=== PATIENT | male | born 1975 | race Caucasian/White ===

== ENCOUNTER 2016-12-06 10:35 | Emergency (ER) | payer OTHER ==
[2016-12-06 11:28] LABS: Basophils % (Auto) 0.7 % (0.0-1.8); Eosinophils % (Auto) 0.9 % (0.0-4.3); Hematocrit 45.5 % (35.5-45.6); Hemoglobin 15.6 gm/dl (11.8-15.2); Mean Corpuscular HGB Conc 34 % (32-34); Mean Corpuscular Hemoglobin 32 pg (28-32); Mean Corpuscular Volume 94 fl (84-94); Platelet Count 202 K/mm3 (140-440); Red Blood Count 4.84 M/mm3 (3.65-5.03); Red Cell Distribution Width 14.5 % (13.2-15.2); White Blood Count 8.7 K/mm3 (4.5-11.0)
[2016-12-06 11:35] LABS: Alanine Aminotransferase 7 units/L (7-56); Albumin 3.8 g/dL (3.9-5); Albumin/Globulin Ratio 0.9 %; Alkaline Phosphatase 47 units/L (35-129); Anion Gap 15 mmol/L; Blood Urea Nitrogen 7 mg/dL (9-20); Calcium 8.6 mg/dL (8.4-10.2); Carbon Dioxide 30 mmol/L (22-30); Glucose 95 mg/dL (75-100); Lipase 13 units/L (13-60); Sodium 138 mmol/L (137-145); Total Protein 8.2 g/dL (6.3-8.2)
[2016-12-06 11:39] LABS: Potassium 2.7 mmol/L (3.6-5.0)
[2016-12-06 11:55] LABS: Bacteria,Urine 1+ /HPF (Negative); Bilirubin,Urine NEG (Negative); Blood,Urine NEG (Negative); Ketones,Urine TR mg/dL (Negative); Leukocyte Esterase,Urine NEG (Negative); Mucus,Urine FEW /HPF; Nitrite,Urine NEG (Negative); Urobilinogen,Urine < 2.0 mg/dL (<2.0)
[2016-12-06] MEDS ORDERED: K-DUR PO ONE (12:39)
[2016-12-06] MEDS ORDERED: TORADOL IV ONE (12:47)
--- NOTE | 2016-12-06 12:54 | Emergency Department Report ---
HPI - General Chief Complaint: Abdominal Pain Time Seen by Provider: 12/06/16 12:38 - HPI HPI: Room 3 The patient is a 41-year-old male presenting with a chief complaint of abdominal pain and pleurisy. Patient states symptoms began 2 days ago with right lower quadrant abdominal pain rated into his right flank and right upper back. Patient states the pain has been intermittent. Patient doesn't pleurisy but denies any recent flights or long car trips. Patient admits to occasional cough and shortness of breath for past 2 days. Patient denies dysuria or hematuria. The patient currently gives his pain a score of 8/10 Location: [see above] Duration: 2 days Quality: Sharp Severity: 8/10 Modifying factors: [see above] Context: [see above] Mode of transportation: The patient drove himself to the ED and there are no visitors present ED Past Medical Hx - Past Medical History Hx HIV: Yes (CD4 count unknown. No therapy times one month) - Surgical History Past Surgical History?: No - Family History Family history: no significant - Social History Smoking Status: Current Every Day Smoker (1/3 pack per day) Substance Use Type: None (denies illicit drug use), Alcohol (occasional) ED Review of Systems ROS: Stated complaint: CHEST PAIN Other details as noted in HPI Comment: All other systems reviewed and negative Constitutional: denies: chills, fever Eyes: denies: eye pain, eye discharge, vision change ENT: denies: ear pain, throat pain Respiratory: cough, shortness of breath, other (pleurisy) Cardiovascular: denies: chest pain, palpitations Endocrine: no symptoms reported Gastrointestinal: denies: abdominal pain, nausea, diarrhea Genitourinary: denies: urgency, dysuria Musculoskeletal: back pain Skin: denies: rash, lesions Neurological: denies: headache, weakness, paresthesias Psychiatric: denies: anxiety, depression Hematological/Lymphatic: denies: easy bleeding, easy bruising Physical Exam - Physical Exam Vital Signs: Vital Signs 12/06/16 10:47 Temperature 98.4 F Pulse Rate 75 Respiratory 18 Rate Blood Pressure 109/77 O2 Sat by Pulse 100 Oximetry Physical Exam: GENERAL: The patient is well-developed well-nourished male lying on stretcher not appearing to be in acute distress. [] HEENT: Normocephalic. Atraumatic. Extraocular motions are intact. Patient has moist mucous membranes. NECK: Supple. Trachea midline CHEST/LUNGS: Clear to auscultation. There is no respiratory distress noted. HEART/CARDIOVASCULAR: Regular. There is no tachycardia. There is no gallop rub or murmur. ABDOMEN: Abdomen is soft, nontender. Patient has normal bowel sounds. There is no abdominal distention. SKIN: There is no rash. There is no edema. There is no diaphoresis. NEURO: The patient is awake, alert, and oriented. The patient is cooperative. The patient has normal speech MUSCULOSKELETAL: There is no CVA tenderness. There is no evidence of acute injury. ED Course Vital Signs 12/06/16 10:47 Temperature 98.4 F Pulse Rate 75 Respiratory 18 Rate Blood Pressure 109/77 O2 Sat by Pulse 100 Oximetry ED Medical Decision Making - Lab Data Result diagrams: 12/06/16 10:56 12/06/16 10:56 Laboratory Tests 12/06/16 12/06/16 12/06/16 10:56 10:56 10:56 WBC 8.7 RBC 4.84 Hgb 15.6 H Hct 45.5 MCV 94 MCH 32 MCHC 34 RDW 14.5 Plt Count 202 Lymph % (Auto) 13.0 L [place] % (Auto) 10.7 H Eos % (Auto) 0.9 Baso % (Auto) 0.7 Lymph # 1.1 L [place] # 0.9 H Eos # 0.1 Baso # 0.1 Seg Neutrophils % 74.7 H Seg Neutrophils # 6.5 Sodium 138 Potassium 2.7 L* Chloride 96.0 L Carbon Dioxide 30 Anion Gap 15 BUN 7 L Creatinine 1.0 Estimated GFR > 60 BUN/Creatinine Ratio 7.00 Glucose 95 Calcium 8.6 Magnesium 1.90 Total Bilirubin 0.70 AST 14 ALT 7 Alkaline Phosphatase 47 Total Protein 8.2 Albumin 3.8 L Albumin/Globulin Ratio 0.9 Lipase 13 Urine Color Urine Turbidity Urine pH Ur Specific [place] Urine Protein Urine Glucose (UA) Urine Ketones Urine Blood Urine Nitrite Urine Bilirubin Urine Urobilinogen Ur Leukocyte Esterase Urine WBC (Auto) Urine RBC (Auto) Urine Bacteria (Auto) Urine Mucus 12/06/16 11:26 WBC RBC Hgb Hct MCV MCH MCHC RDW Plt Count Lymph % (Auto) [place] % (Auto) Eos % (Auto) Baso % (Auto) Lymph # [place] # Eos # Baso # Seg Neutrophils % Seg Neutrophils # Sodium Potassium Chloride Carbon Dioxide Anion Gap BUN Creatinine Estimated GFR BUN/Creatinine Ratio Glucose Calcium Magnesium Total Bilirubin AST ALT Alkaline Phosphatase Total Protein Albumin Albumin/Globulin Ratio Lipase Urine Color Yellow Urine Turbidity Clear Urine pH 5.0 Ur Specific [place] 1.017 Urine Protein 30 mg/dl Urine Glucose (UA) Neg Urine Ketones Tr Urine Blood Neg Urine Nitrite Neg Urine Bilirubin Neg Urine Urobilinogen < 2.0 Ur Leukocyte Esterase Neg Urine WBC (Auto) 7.0 H Urine RBC (Auto) 2.0 Urine Bacteria (Auto) 1+ Urine Mucus Few - Radiology Data Radiology results: report reviewed (CT chest), image reviewed (CT abdomen and pelvis, CT chest) CT chest (discussed with radiologist)-bilateral PEs - Differential Diagnosis pneumonia, pneumothorax, PE Critical care attestation.: If time is entered above; I have spent that time in minutes in the direct care of this critically ill patient, excluding procedure time. ED Disposition Clinical Impression: Hypokalemia, Bilateral pulmonary embolism Disposition: OP ADMIT IP TO THIS HOSP Is pt being admited?: Yes Does the pt Need Aspirin: Yes Condition: Fair Referrals: PRIMARY CARE, [Primary Care Provider] - 3-5 Days Time of Disposition: 15:23 (hospitalist notified)
[2016-12-06] MEDS ORDERED: NACL ONE (13:56)
--- NOTE | 2016-12-06 15:16 | Cat Scan Report ---
FINAL REPORT PROCEDURE: CT ABDOMEN PELVIS W CON TECHNIQUE: Computerized axial tomography of the abdomen and pelvis was performed after the IV injection of iodinated nonionic contrast. HISTORY: right flank pain COMPARISON: No prior studies are available for comparison. FINDINGS: Ground-glass and alveolar opacity is seen at the right lung base. Please see further evaluation on CTA chest report to follow this exam. No splenic abnormality is seen. 4 millimeter cyst is seen in the right hepatic lobe. Gallbladder and pancreas appear normal. The adrenal glands and abdominal aorta are normal in size. No renal abnormalities are seen. Normal appendix is seen. Bladder appears normal. Trace free pelvic fluid is seen. Moderate right-sided constipation is seen. No evidence of bowel obstruction is seen. There is passage of fluid and GI contrast in the small bowel IMPRESSION: Moderate right-sided constipation is seen. There is trace free fluid in the pelvis of uncertain etiology
--- NOTE | 2016-12-06 15:20 | Cat Scan Report ---
FINAL REPORT PROCEDURE: CT ANGIO CHEST TECHNIQUE: Computerized tomographic angiography of the chest was performed after the IV injection of iodinated nonionic contrast including image processing. The image data was postprocessed using 2-dimensional multiplanar reformatted (MPR) and 3-dimensional (MIP and/or volume rendered) techniques. HISTORY: pleurisy, shortness of breath COMPARISON: No prior studies are available for comparison. FINDINGS: Alveolar and ground-glass density is seen in the right lung base. Mild changes of COPD are present. Minimal hypoventilatory changes are seen at the left lung base. Trace right pleural effusion is seen. No mediastinal lymphadenopathy is seen. The heart and thoracic aorta are normal in size. There is no evidence of aortic dissection. A few small pulmonary emboli are seen in the right lower lobe branches distally. Lung opacity at the right base is probably from pulmonary infarction. There is another embolus within 2nd order branch of the left pulmonary artery in the left lower lobe of the lungs. This extends into a few more distal branches but is partially occlusive. IMPRESSION: Moderate bilateral pulmonary emboli are seen with likely mild pulmonary infarction at the right lung base. Critical results were discussed with Dr. Harry at 3:13 p.m. Eastern time on December 06, 2016.
--- NOTE | 2016-12-06 15:34 | History and Physical Report ---
History of Present Illness Chief complaint: My chest hurts when i breathe History of present illness: 41 YO Male with AIDS,Nicotine Dependence presents to ED with pleuritic chest pain. Pt seen and evaluated in ED and found to lack respiratory distress. Pt underwent CTA chest and found to have small bilateral PE, and CT Abdomen and pelvis revealed constipation. Pt treated with therapeutic anticoagulation, and discharged home with eliquis, as well as bowel regimen. Pt medically optimized and discharged home and instructed to f/u pcp 1wk, ID as directed. Past History Past Medical History: HIV/AIDS, other (Nicotine Dependence) Past Surgical History: No surgical history, Other (reviewed) Social history: single, smoking. denies: alcohol abuse, prescription drug abuse , IV drug use Family history: hypertension Medications and Allergies Allergies Allergy/AdvReac Type Severity Reaction Status Date / Time No Known Allergies Allergy Unverified 12/06/16 10:54 Home Medications Medication Instructions Recorded Confirmed Last Taken Type Apixaban [Eliquis] 5 mg PO BID #74 tablet 12/06/16 Unknown Rx Active Meds: Active Medications Apixaban (Eliquis) 10 mg PO Q12H ALBA PRN Reason: Protocol Review of Systems Constitutional: no weight loss, no weight gain, no fever Ears, nose, mouth and throat: no ear pain, no ear discharge, no tinnitis Cardiovascular: no chest pain, no orthopnea, no palpitations Respiratory: no cough, no cough with sputum, no excessive sputum Gastrointestinal: abdominal pain, no coffee ground emesis Genitourinary Male: no dysuria, no hematuria, no discharge Rectal: no pain, no incontinence, no bleeding Musculoskeletal: no neck stiffness, no neck pain, no shooting arm pain Integumentary: no rash, no pruritis, no redness Neurological: no head injury, no transient paralysis, no paralysis, no weakness Psychiatric: no anxiety, no memory loss, no change in sleep habits, no sleep disturbances Endocrine: no cold intolerance, no heat intolerance, no polyphagia, no polydipsia Hematologic/Lymphatic: no easy bruising, no easy bleeding Allergic/Immunologic: no urticaria, no allergic rhinitis, no wheezing Exam - Constitutional Vitals: Temp Pulse Resp BP Pulse Ox 98.9 F 68 14 109/70 99 12/06/16 13:48 12/06/16 13:48 12/06/16 13:48 12/06/16 13:48 12/06/16 13:49 General appearance: Present: no acute distress, well-nourished - EENT Eyes: Present: PERRL ENT: hearing intact, clear oral mucosa - Neck Neck: Present: supple, normal ROM - Respiratory Respiratory effort: normal Respiratory: bilateral: CTA - Cardiovascular Heart Sounds: Present: S1 & S2. Absent: rub, click - Extremities Extremities: pulses symmetrical, No edema Peripheral Pulses: within normal limits - Abdominal General gastrointestinal: Present: soft, non-tender, non-distended, normal bowel sounds Male genitourinary: Present: normal - Integumentary Integumentary: Present: clear, warm, dry - Musculoskeletal Musculoskeletal: gait normal, strength equal bilaterally - Psychiatric Psychiatric: appropriate mood/affect, intact judgment & insight - Neurologic Neurologic: CNII-XII intact, moves all extremities Results - Labs CBC & Chem 7: 12/06/16 10:56 12/06/16 10:56 Labs: Abnormal lab results 12/06/16 12/06/16 12/06/16 Range/Units 10:56 10:56 11:26 Hgb 15.6 H (11.8-15.2) gm/dl Lymph % (Auto) 13.0 L (13.4-35.0) % [place] % (Auto) 10.7 H (0.0-7.3) % Lymph # 1.1 L (1.2-5.4) K/mm3 [place] # 0.9 H (0.0-0.8) K/mm3 Seg Neutrophils % 74.7 H (40.0-70.0) % Potassium 2.7 L* (3.6-5.0) mmol/L Chloride 96.0 L (98-107) mmol/L BUN 7 L (9-20) mg/dL Albumin 3.8 L (3.9-5) g/dL Urine WBC (Auto) 7.0 H (0.0-6.0) /HPF Assessment and Plan - Patient Problems (1) AIDS Current Visit: Yes Status: Acute Plan to address problem: ID F/U as outpatient (2) Nicotine dependence Current Visit: Yes Status: Acute Qualifiers: Nicotine product type: N Substance use status: S Plan to address problem: Pt counseled, (3) Bilateral pulmonary embolism Current Visit: Yes Status: Acute Plan to address problem: Therapeutic anticoagulation Dre Barry given logistics administrator coupon for free medication. (4) Constipation Current Visit: Yes Status: Acute Qualifiers: Constipation type: C Plan to address problem: bowel regimen
[2016-12-06] MEDS ORDERED: ELIQUIS PO SCH ×2 (16:00→22:00)
[2016-12-06 17:04] VITALS: BP 118/70
== END 2016-12-06 19:28 | disposition admitted as inpatient to this hospital (09) ==
LOC: ED 10:35
DX: I26.99 Other pulmonary embolism without acute cor pulmonale (principal); E87.6 Hypokalemia; F17.200 Nicotine dependence, unspecified, uncomplicated
CPT/HCPCS: 36415; 71275; 74177; 80053; 81001; 83690; 83735; 85025; 93005; 93010; 96374; 99284; J1885; Q9967